=== PATIENT | female | born 1995 | race African-American/Black ===

== ENCOUNTER 2017-03-24 16:13 | Emergency (ER) | payer SELFPAY ==
[~2017-03-24] VITALS: Ht 165.1 cm; Wt 100.0 kg
[~2017-03-24 16:13] MED LIST: ADVAIR DISK1 IN; ADVAIR DISK2 IN; ALBUTEROL S2.5 MG/.5 IN; AMOXICILLIN500 MG OR; BACTRIM DS1 TAB OR; BACTRIM DS1 TAB PO; BENADRYL 50MG C50 MG PO; CEPHALEXIN500 MG OR; FLOXIN OTIC0.3 % OT; NAPROSYN500 MG PO; NO MEDS; PREDNISONE10 MG PO; SINGULAIR OR; SINGULAIR10 MG OR; VENTOLIN HFA IN; ZITHROMAX250 MG PO
[2017-03-24] MEDS ORDERED: VENTOLIN HFA IN (16:27)
[2017-03-24] MEDS ORDERED: PREDNISONE50 MG PO (16:27)
[2017-03-24 16:59] VITALS: BP 112/58
== END 2017-03-24 17:20 | disposition home or self-care (01) | DRG 203 ==
LOC: ED 16:13
DX: J45.901 Unspecified asthma with (acute) exacerbation (principal)

== ENCOUNTER 2018-04-11 06:07 | Emergency (ER) | payer SELFPAY ==
[~2018-04-11] VITALS: Ht 165.1 cm; Wt 122.4 kg
[~2018-04-11 06:07] MED LIST changes: +PREDNISONE50 MG PO
[2018-04-11] MEDS ORDERED: ZPAK PO (08:06)
[2018-04-11] MEDS ORDERED: BENADRYL 50MG C50 MG PO (08:06)
[2018-04-11] MEDS ORDERED: MEDDOSEPAK PO (08:06)
[2018-04-11 08:30] VITALS: BP 108/59
== END 2018-04-11 08:30 | disposition home or self-care (01) | DRG 923 ==
LOC: ED 06:07
DX: T78.1XXA Other adverse food reactions, not elsewhere classified, initial encounter (principal); T78.3XXA Angioneurotic edema, initial encounter; X58.XXXA Exposure to other specified factors, initial encounter; J02.0 Streptococcal pharyngitis

== ENCOUNTER 2019-05-04 17:43 | Emergency (ER) | payer SELFPAY ==
[~2019-05-04] VITALS: Ht 165.1 cm; Wt 113.0 kg
[~2019-05-04 17:43] MED LIST changes: +MEDDOSEPAK PO; +ZPAK PO
[2019-05-04 18:58] LABS: HEMATOCRIT 37.2 % (37.0-47.0); HEMOGLOBIN 12.1 g/dl (12.0-16.0); IMMATURE GRANULOCYTES 0.3 % (0.0-5.0); MEAN CELL VOLUME 92.5 fL CALC (80.0-100.0); MEAN CORPUSCULAR HGB 30.1 pG CALC (26.0-32.0); MEAN CORPUSCULAR HGB CONC 32.5 g/L CALC (32.0-36.0); NEUT# 2.49 thou/uL (2.00-7.15); RED BLOOD COUNT 4.02 mill/uL (4.20-5.60); RED CELL DISTRI WIDTH 13.1 % (11.5-15.5)
[2019-05-04 19:42] LABS: ALBUMIN 3.4 g/dL (3.2-5.0); ALKALINE PHOSPHATASE 71 u/l (38-126); ANION GAP 11 (6-22 (CALC)); BILIRUBIN, TOTAL 0.2 mg/dL (0.0-1.4); BUN 10 mg/dL (7-17); BUN/CREATININE RATIO 14 (12-20 (CALC)); CARBON DIOXIDE 26 mmol/l (22-30); CHLORIDE 106 mmol/l (95-108); CREATININE 0.7 mg/dL (0.5-1.0); GFR > 60 ML/MIN (>=60 (CALC)); GFR FOR AFR.AMER. > 60 ML/MIN (>=60 (CALC)); SGOT/AST 19 u/l (14-36); SODIUM 139 mmol/l (137-146); TOTAL PROTEIN 6.4 g/dL (6.3-8.2)
[2019-05-04 19:45] LABS: URINE BILIRUBIN - DIPSTICK NEGATIVE (NEGATIVE); URINE BLOOD DIPSTICK NEGATIVE (NEGATIVE); URINE COLOR YELLOW; URINE GLUCOSE - DIPSTICK NEGATIVE (NEGATIVE); URINE KETONE NEGATIVE (NEGATIVE); URINE LEUK ESTERASE NEGATIVE (NEGATIVE); URINE NITRITE - DIPSTICK NEGATIVE (Negative); URINE PH 6.5 (4.5-8.0); URINE PROTEIN - DIPSTICK NEGATIVE (NEG-TRACE); URINE SPECIFIC GRAVITY 1.025; URINE UROBILINOGEN - DIPSTICK 0.2 E.U./dL (0.2)
[2019-05-04 19:49] LABS: BARBITURATES NEGATIVE (NEGATIVE); COCAINE NEGATIVE (NEGATIVE); METHADONE NEGATIVE (NEGATIVE); OXCYCODONE NEGATIVE (NEGATIVE); TETRAHYDROCANNABIONOL POSITIVE (NEGATIVE); TRICYLIC ANTIDEPRESSANTS NEGATIVE (NEGATIVE)
[2019-05-04 20:19] VITALS: BP 128/79
== END 2019-05-04 20:20 | disposition home or self-care (01) | DRG 101 ==
LOC: ED 17:43
PROVIDERS: Emergency Medicine
DX: G40.909 Epilepsy, unspecified, not intractable, without status epilepticus (principal)

== ENCOUNTER 2019-06-13 17:57 | Emergency (ER) | payer SELFPAY | END 2019-06-13 19:11 | disposition left against medical advice (07) | DRG 951 | LOC: ED 17:57 → LWOBS 19:01 → ED 19:01 → LWOBS 19:02 → ED 19:11 → LWOBS 19:12 | DX: Z91.19 Patient's noncompliance with other medical treatment and regimen (principal) ==